=== PATIENT | female | born 1985 | race Two or more races ===

== ENCOUNTER 2017-04-29 06:45 | Inpatient (IN) | payer MEDICAID ==
[2017-04-29 07:28] LABS: APPEARANCE,URINE CLEAR; BILIRUBIN,URINE NEGATIVE (NEGATIVE); GLUCOSE, URINE NEGATIVE (NEGATIVE); KETONES,URINE NEGATIVE (NEGATIVE); LEUKOCYTE ESTERASE,URINE NEGATIVE (NEGATIVE); NITRITE,URINE NEGATIVE (NEGATIVE); PROTEIN,URINE NEGATIVE (NEGATIVE); URINE SPECIFIC GRAVITY 1.015; UROBILINOGEN,URINE NEGATIVE mg/dL (<2.0)
[2017-04-29] MEDS ORDERED: PENICILLIN G-K 5 MILLION UNIT VIAL ONE ×2 (07:47→11:18)
[2017-04-29 07:55] LABS: URINE BARBITURATES SCREEN NEGATIVE; URINE METHADONE SCREEN NEGATIVE; URINE OPIATES LOW NEGATIVE; URINE PHENCYCLIDINE SCREEN NEGATIVE
[2017-04-29] MEDS ORDERED: PENICILLIN G POTASSIUM 5,000,000 UNIT in DEXTROSE 5%-WATER 100 ML IV ONE (08:00)
[2017-04-29] MEDS ORDERED: RINGERS SOLUTION,LACTATED 1,000 ML IV PRN (08:34)
[2017-04-29] MEDS ORDERED: OXYTOCIN/NORMAL SALINE 20 UNIT/1,000 ML RTUINJ IV PRN ×2 (08:42→13:32)
[2017-04-29] MEDS ORDERED: MISOPROSTOL 0.2 MG TABLET PR PRN (08:42)
[2017-04-29] MEDS ORDERED: LIDOCAINE 1% INJ-PF (10 MG/ML) 30 ML SDV INJ PRN (08:42)
[2017-04-29] MEDS ORDERED: OXYTOCIN/NORMAL SALINE 20 UNIT/1,000 ML RTUINJ ONE (08:45)
[2017-04-29] MEDS ORDERED: MISOPROSTOL 0.2 MG TABLET ONE (08:45)
[2017-04-29] MEDS ORDERED: LIDOCAINE 1% INJ-PF (10 MG/ML) 30 ML SDV ONE (08:45)
[2017-04-29 09:33] LABS: ABSOLUTE BASOPHILS # (AUTO) 0.1 10^3/uL (0.0-0.2); ABSOLUTE LYMPHOCYTES (AUTO) 1.9 10^3/uL (0.5-4.7); ABSOLUTE MONOCYTES (AUTO) 0.7 10^3/uL (0.1-1.4); ABSOLUTE NEUT (AUTO) 11.4 10^3/uL (1.7-8.2); BASOPHILS % (AUTO) 0.5 % (0-2); EOSINOPHILS % (AUTO) 0.2 % (0-6); HEMATOCRIT 37.1 % (36.0-47.0); HEMOGLOBIN 13.1 g/dL (12.0-15.5); HGB HCT DIFFERENCE 2.2; LYMPHOCYTES % (AUTO) 13.4 % (13-45); MEAN CORPUSCULAR HEMOGLOBIN 31.9 pg (27.0-33.4); MEAN CORPUSCULAR HGB CONC 35.3 g/dL (32.0-36.0); MEAN CORPUSCULAR VOLUME 91 fl (80-97); MONOCYTES % (AUTO) 4.9 % (3-13); RED BLOOD COUNT 4.09 10^6/uL (3.72-5.28); RED CELL DISTRIBUTION WIDTH 14.6 % (11.5-14.0)
[2017-04-29] MEDS: PENICILLIN G POTASSIUM 2,500,000 UNIT in DEXTROSE 5%-WATER 50 ML IV SCH ×4 (11:21→23:25)
[2017-04-29] MEDS ORDERED: GLYCERIN/WITCH HAZEL LEAF 1 EACH MED..PAD TP PRN (13:32)
[2017-04-29] MEDS ORDERED: NA PHOS,M-B/NA PHOS,DI-BA (ADULT) 133 ML ENEMA PR PRN (13:32)
[2017-04-29] MEDS ORDERED: ZOLPIDEM TARTRATE 5 MG TABLET PO PRN (13:32)
[2017-04-29] MEDS ORDERED: DIBUCAINE 1% OINTMENT 28 GM TP PRN (13:32)
[2017-04-29] MEDS ORDERED: BENZOCAINE/MENTHOL AEROSOL SPRAY 56 ML TOP PRN (13:32)
[2017-04-29] MEDS ORDERED: MAGNESIUM HYDROXIDE SUSP 30 ML UDCUP PO PRN (13:32)
[2017-04-29] MEDS ORDERED: ACETAMINOPHEN WITH CODEINE #3 TABLET PO PRN ×2 (13:32)
[2017-04-29] MEDS ORDERED: DIPHENHYDRAMINE HCL 25 MG CAPSULE PO PRN (13:32)
[2017-04-29] MEDS ORDERED: PSEUDOEPHEDRINE HCL 30 MG TABLET PO PRN (13:32)
[2017-04-29] MEDS ORDERED: ACETAMINOPHEN 650 MG SUPP.RECT PR PRN (13:32)
[2017-04-29] MEDS ORDERED: PROMETHAZINE HCL INJ 25 MG/1 ML VIAL IV PRN (13:32)
[2017-04-29] MEDS ORDERED: DIPH/PERTUSS(ACELL)/TETANUS VAC/PF 0.5 ML SYR (>=10YO) IM PRN (13:32)
[2017-04-29] MEDS ORDERED: PROMETHAZINE HCL 25 MG TABLET PO PRN (13:32)
[2017-04-29] MEDS ORDERED: PROMETHAZINE HCL 25 MG SUPP.RECT PR PRN (13:32)
[2017-04-29] MEDS ORDERED: MEASLES,MUMPS&RUBELLA VACC/PF 0.5 ML VIAL SUBCUT PRN (13:32)
[2017-04-29] MEDS ORDERED: ACETAMINOPHEN WITH CODEINE #3 TABLET ONE (13:56)
[2017-04-29] MEDS ORDERED: IBUPROFEN 800 MG TABLET ONE (13:56)
--- NOTE | 2017-04-29 15:38 | Delivery Summary ---
Del Sum A-C Datetime Report Generated by CPN: 04/29/2017 15:38 DELIVERY PERSONNEL DELIVERY PERSONNEL: [id number] Delivery Doctor:: Miryam Garcia MD Labor and Delivery Nurse:: Danyelle Penny RNcustomer advisor specialist Nurse:: Dilcia Wang RN Dinkey Engine Operator/ARBORIST REPRESENTATIVE: Delphine Rylandekom, RN BARIATRIC MATERNAL INFORMATION Delivery Anesthesia: None Medications After Delivery: Pitocin Bolus-Please Comment Meds After Delivery Comment: Pitocin 20 units in 1000mL NS Maternal Complications: None (Annotations: Data stored by [facility] on behalf of user) LABOR SUMMARY EDC: 05/12/2017 00:00 No. Babies in Womb: 1 Attempted: No Labor Anesthesia: None LABOR INFORMATION Reason for Induction: Not Applicable Onset of Labor: 04/29/2017 05:00 Complete Dilatation: 04/29/2017 13:08 Oxytocin: N/A Group B Beta Strep: Positive Antibiotics # of Doses: 2 Antibiotics Time of Last Dose: 1121 Name of Antibiotic Given: PCN Steroids Given: None Reason Steroids Not Administered: Not Applicable MEMBRANES Membranes Rupture Method: Spontaneous Rupture of Membranes: 04/29/2017 10:21 Length of Rupture (hr): 3.05 Amniotic Fluid Color: Clear Amniotic Fluid Amount: Moderate Amniotic Fluid Odor: Normal STAGES OF LABOR Stage 1 hr: 8 Stage 1 min: 8 Stage 2 hr: 0 Stage 2 min: 16 Stage 3 hr: 0 Stage 3 min: 5 Total Time in Labor hr: 8 Total Time in Labor min: 29 VAGINAL DELIVERY Episiotomy: None Laceration Extension: N/A Laceration Type: None Laceration Repair: Not Applicable Sponge Count Correct: Yes Sharps Count Correct: N/A CSECTION DELIVERY Primary Indication: N/A Secondary Indication: N/A CSection Urgency: N/A CSection Incidence: N/A Labor: N/A Elective: N/A CSection Incision: N/A BABY A INFORMATION Infant Delivery Date/Time: 04/29/2017 13:24 Method of Delivery: Vaginal Born in Route : No : N/A Forceps: N/A Vacuum Extraction: N/A Shoulder Dystocia : No PRESENTATION/POSITION BABY A Presentation: Cephalic Cephalic Presentation: Vertex Vertex Position: Right Occipital Anterior Breech Presentation: N/A PLACENTA INFORMATION BABY A Placenta Delivery Time : 04/29/2017 13:29 Placenta Method of Delivery: Spontaneous Placenta Status: Delivered SCORES BABY A Heart Rate 1 min: >100 bpm Resp Effort 1 min: Good Cry Reflex Irritability 1 min: Cough or Sneeze or Pulls Away Muscle Tone 1 min: Active Motion Color 1 min: Blue/Pale Resuscitation Effort 1 min: Tactile Stimulation SCORE 1 MIN: 8 Heart Rate 5 min: >100 bpm Resp Effort 5 min: Good Cry Reflex Irritability 5 min: Cough or Sneeze or Pulls Away Muscle Tone 5 min: Active Motion Color 5 min: Body [place], Extremities Blue Resuscitation Effort 5 min: Tactile Stimulation SCORE 5 MIN: 9 INFORMATION BABY A Gestational Age at Delivery: 38.1 Gestational Status: Early Term- 37- 38.6 Weeks Outcome : Liveborn Infant Condition : Stable Infant Sex: Male IDENTIFICATION BABY A Verification Date/Time: 04/29/2017 13:35 ID Band Number: [id number] Mother's Name Verified: Yes RN Verifying Infant: Olayinka Guevara, RN and RScott Brucelillianaeitan, RN WEIGHT/LENGTH BABY A Birthweight (gm): 3620 Weight (lb): 8 Weight (oz): 0 Length (in): 20.50 Infant Length (cm): 52.07 CORD INFORMATION BABY A No. Cord Vessels: 3 Nuchal Cord : N/A True Knot: 1 Cord Blood Taken: Yes-For Storage (Mom's Blood type +) Suction: Mouth; Nose ASSESSMENT BABY A Complications: Multiple Variable Decels Physical Findings at Delivery: Within Normal Limits; Caput Succedaneum; Molding of the Head Infant Respirations: Appears Normal Skin to Skin: Yes Skin to Skin Time (min): 80 Supervisor [place]/ALS Called : No Care By: Heather Wang RN Transferred To: Remains with Mother BABY B INFORMATION : N/A SIGNATURES Signature: with User ID: [email or web address]
[2017-04-29] MEDS: IBUPROFEN 800 MG TABLET PO SCH ×2 (16:34→21:11)
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
[2017-04-29] MEDS: FERROUS SULFATE 325 MG TABLET PO SCH (17:13)
[2017-04-29] MEDS: DOCUSATE SODIUM 100 MG CAPSULE PO SCH (17:13)
[2017-04-29] MEDS: FAMOTIDINE 20 MG TABLET PO SCH (21:12)
[2017-04-30] MEDS: PENICILLIN G POTASSIUM 2,500,000 UNIT in DEXTROSE 5%-WATER 50 ML IV SCH (03:22)
[2017-04-30] MEDS: IBUPROFEN 800 MG TABLET PO SCH ×3 (05:12→21:23)
[2017-04-30 06:59] LABS: HEMATOCRIT 33.7 % (36.0-47.0); HEMOGLOBIN 11.3 g/dL (12.0-15.5); HGB HCT DIFFERENCE 0.2; MEAN CORPUSCULAR HEMOGLOBIN 30.9 pg (27.0-33.4); MEAN CORPUSCULAR HGB CONC 33.5 g/dL (32.0-36.0); MEAN CORPUSCULAR VOLUME 92 fl (80-97); RED BLOOD COUNT 3.65 10^6/uL (3.72-5.28); RED CELL DISTRIBUTION WIDTH 14.9 % (11.5-14.0); WHITE BLOOD COUNT 12.2 10^3/uL (4.0-10.5)
[2017-04-30] MEDS: DOCUSATE SODIUM 100 MG CAPSULE PO SCH ×2 (09:03→18:40)
[2017-04-30] MEDS: FERROUS SULFATE 325 MG TABLET PO SCH ×2 (09:04→18:40)
[2017-04-30] MEDS: SENNOSIDES/DOCUSATE 8.6-50 MG 1 EACH TABLET PO SCH (09:04)
[2017-04-30] MEDS: PRENATAL VITAMIN W-O CA NO5/FE FUMARATE/FA CAPSULE PO SCH (09:04)
[2017-04-30] MEDS: FAMOTIDINE 20 MG TABLET PO SCH ×2 (09:04→21:23)
--- NOTE | 2017-04-30 10:52 | PDOC PROGRESS REPORT ---
Subjective-OB Subjective: Post Delivery Day:1 31 year old G6 now P3 s/p ppd 1. Ambulating and voiding without difficulty. Denies any needs at this time Physical Exam (OB) Vital Signs: Temp Pulse Resp BP Pulse Ox 98.1 F 80 16 126/70 H 99 04/30/17 08:04 04/30/17 08:04 04/30/17 08:04 04/30/17 08:04 04/30/17 08:04 Intake & Output 04/29/17 04/30/17 05/01/17 06:59 06:59 06:59 Intake Total 200 Balance 200 Weight 107.25 kg - General General Appearance: Appears well In distress: None - Episiotomy/Laceration Site Condition: N/A - Lochia Lochia Amount: Small 10-25 ml Lochia Color: Rubra/Red - Abdomen Description: Soft Hernia Present: No Fundal Description: Firm, Midline Fundal Height: u/u - u/2 - Respiratory Respiratory Status: No respiratory distress - Extremities Upper extremity: Normal inspection Lower extremities: Normal inspection - Neurological Cognition: Normal Orientation: AAOx4 - Psychological Associated symptoms: Normal affect, Normal mood Objective-Diagnostic Laboratory: 04/30/17 06:51 04/29/17 04/29/17 04/30/17 08:40 09:18 06:51 WBC 14.0 H 12.2 H RBC 4.09 3.65 L Hgb 13.1 11.3 L Hct 37.1 33.7 L MCV 91 92 MCH 31.9 30.9 MCHC 35.3 33.5 RDW 14.6 H 14.9 H Plt Count 213 185 Seg Neutrophils % 81.0 H Lymphocytes % 13.4 Monocytes % 4.9 Eosinophils % 0.2 Basophils % 0.5 Absolute Neutrophils 11.4 H Absolute Lymphocytes 1.9 Absolute Monocytes 0.7 Absolute Eosinophils 0.0 Absolute Basophils 0.1 Blood Type A POSITIVE Antibody Screen NEGATIVE Assessment and Plan(PN) - Assessment and Plan (1) Vaginal delivery Is this a current diagnosis for this admission?: Yes Plan: routine pp care (2) History of depression Is this a current diagnosis for this admission?: Yes Plan: monitor and provide information for immediate attention with ppd - Time Spent with Patient Time with patient: 15-25 minutes Medications reviewed and adjusted accordingly: Yes - Disposition Anticipated Discharge: Home Within: within 24 hours
[2017-05-01] MEDS: IBUPROFEN 800 MG TABLET PO SCH (05:59)
[2017-05-01 08:35] VITALS: BP 122/78
[2017-05-01] MEDS: PRENATAL VITAMIN W-O CA NO5/FE FUMARATE/FA CAPSULE PO SCH (09:44)
[2017-05-01] MEDS: FERROUS SULFATE 325 MG TABLET PO SCH (09:44)
[2017-05-01] MEDS: DOCUSATE SODIUM 100 MG CAPSULE PO SCH (09:44)
[2017-05-01] MEDS: SENNOSIDES/DOCUSATE 8.6-50 MG 1 EACH TABLET PO SCH (09:44)
[2017-05-01] MEDS: FAMOTIDINE 20 MG TABLET PO SCH (09:45)
--- NOTE | 2017-05-01 11:02 | PDOC PROGRESS REPORT ---
Subjective-OB Subjective: Post Delivery Day: 31 year old. Denies any needs at this time Doing well, no c/o, ready to go home, wants depo today the pp BTL, breast feeding Physical Exam (OB) Vital Signs: Temp Pulse Resp BP Pulse Ox 98.0 F 74 18 122/78 99 05/01/17 07:46 05/01/17 07:46 05/01/17 07:46 05/01/17 07:46 05/01/17 07:46 Intake & Output 04/30/17 05/01/17 05/02/17 06:59 06:59 06:59 Intake Total 200 400 400 Balance 200 400 400 Weight 107.25 kg - Lochia Lochia Amount: Scant < 10 ml Lochia Color: Rubra/Red - Abdomen Description: Tender, Soft Hernia Present: Yes - possible hernia on right side of umbilicus, CNM aware Fundal Description: Firm, Midline Fundal Height: u/u - u/2 Objective-Diagnostic Laboratory: 04/30/17 06:51 Assessment and Plan(PN) - Assessment and Plan (1) Vaginal delivery Is this a current diagnosis for this admission?: Yes (2) History of depression Is this a current diagnosis for this admission?: Yes - Time Spent with Patient Time with patient: Less than 15 minutes Medications reviewed and adjusted accordingly: Yes - Disposition Anticipated Discharge: Home Within: Other - home today
--- NOTE | 2017-05-01 11:08 | PDOC DISCHARGE SUMMARY ---
Final Diagnosis Discharge Date: 05/01/17 - Final Diagnosis (1) Vaginal delivery Is this a current diagnosis for this admission?: Yes (2) History of depression Is this a current diagnosis for this admission?: Yes Discharge Data - Discharge Medication Home Medications: Prenat Vit Comb.10/Iron/FA/Dha [Vitafol-Ob+Dha Combo Pack] 1 tab PO DAILY Aspirin [Aspirin 81 mg Chewable Tablet] 81 mg PO DAILY 04/29/17 Gestational Age: 38.1 Reason(s) for Admission: Onset of Labor, Group B Strep Positive Procedures: NST, Ultrasound Intrapartum Procedure(s): Spontaneous Vaginal Delivery - Data Baby 1 Male at 1 minute: 8 at 5 minutes: 9 Weight: 3.629 kg Home with Mother: Yes Complications: No - Diagnosis Test Laboratory: Temp Pulse Resp BP Pulse Ox 98.0 F 74 18 122/78 99 05/01/17 07:46 05/01/17 07:46 05/01/17 07:46 05/01/17 07:46 05/01/17 07:46 04/29/17 04/29/17 04/30/17 06:57 08:40 06:51 RBC 4.09 3.65 L Hgb 13.1 11.3 L Hct 37.1 33.7 L Urine Opiates Screen NEGATIVE - Discharge information/Instructions Discharge Activity: Activity As Tolerated, No Lifting Over 10 Pounds, No Lifting /Push/Pulling, Pelvic Rest Discharge Diet: As Tolerated, Regular Disposition: HOME, SELF-CARE Follow up with: [facility] in: 4, Weeks - [facility] 4 weeks
[2017-05-01] MEDS ORDERED: MEDROXYPROGESTERONE ACET INJ 150 MG/1 ML VIAL IM ONE (12:00)
== END 2017-05-01 12:48 | disposition home or self-care (01) | DRG 775 ==
LOC: LC 06:45 → LR 08:52 → 2S 16:48
PROVIDERS: ADMIT Obstetrics & Gynecology; ATTEND Obstetrics & Gynecology
PROC: 10E0XZZ Delivery of Products of Conception, External Approach (ICD-10-PCS; principal; 2017-04-29)
DX: O99.824 Streptococcus B carrier state complicating childbirth (principal); O76 Abnormality in fetal heart rate and rhythm complicating labor and delivery; O26.23 Pregnancy care for patient with recurrent pregnancy loss, third trimester; Z3A.38 38 weeks gestation of pregnancy; Z37.0 Single live birth; O99.214 Obesity complicating childbirth; Z68.37 Body mass index [BMI] 37.0-37.9, adult
CPT/HCPCS: 36415; 80307; 81005; 85025; 85027; 86592; 86850; 86900; 86901; J1050; J2540; J2590; J3490